=== PATIENT | female | born 1980 | race Caucasian/White ===

== ENCOUNTER 2021-11-16 08:17 | Outpatient (CLI) | payer BC, SELFPAY | END 2021-11-16 08:18 | disposition home or self-care (01) | LOC: CSHMAMMO 08:17 | PROVIDERS: ATTEND Obstetrics & Gynecology | DX: Z12.31 Encounter for screening mammogram for malignant neoplasm of breast (principal); R92.1 Mammographic calcification found on diagnostic imaging of breast | CPT/HCPCS: 77063; 77067 ==

== ENCOUNTER 2021-11-30 09:35 | Outpatient (CLI) | payer BC | END 2021-11-30 09:36 | disposition home or self-care (01) | LOC: CSHLAB 09:35 | PROVIDERS: ATTEND Surgery | DX: Z01.818 Encounter for other preprocedural examination (principal); Z20.822 Contact with and (suspected) exposure to COVID-19; C50.911 Malignant neoplasm of unspecified site of right female breast | CPT/HCPCS: 87811; 93005; 93010 ==

== ENCOUNTER 2021-12-04 06:34 | Day surgery (SDC) | payer BC ==
[2021-11-29 13:56] VITALS: BMI 37.5
[2021-12-04] MEDS ORDERED: EPINEPHrine 1 MG/ML AMP ONE (07:12)
[2021-12-04] MEDS ORDERED: Bupivacaine PF 0.5% 30 ML VIAL ONE (07:12)
[2021-12-04] MEDS ORDERED: Isosulfan Blue 50 MG/5 ML VIAL ONE (07:12)
[2021-12-04] MEDS ORDERED: CEFAZOLIN 2 GM VIAL ONE (08:01)
[2021-12-04] MEDS ORDERED: Fentanyl 100 MCG/2 ML VIAL ONE ×2 (08:46→09:28)
[2021-12-04] MEDS ORDERED: PROPOFOL 20 ML ONE (08:46)
[2021-12-04] MEDS ORDERED: PHENYLEPHRINE-NS 100 MCG/ML 10 ML SYRINGE ONE (08:48)
[2021-12-04] MEDS ORDERED: Midazolam HCl 2 mg/2 ml Vial ONE (08:55)
[2021-12-04] MEDS ORDERED: Dexamethasone 4 mg/ml Vial ONE (09:15)
[2021-12-04] MEDS ORDERED: Ondansetron PF 4 MG/2 ML Vial ONE (09:15)
[2021-12-04] MEDS ORDERED: diphenhydrAMINE 50 MG/ML VIAL ONE (09:15)
[2021-12-04] MEDS ORDERED: Ketorolac Tromethamine 30 MG/ML VIAL ONE (09:47)
[2021-12-04] MEDS ORDERED: Meperidine HCl/PF 25 MG/ML VIAL ONE (10:21)
[2021-12-04] MEDS ORDERED: Acetaminophen 325 MG TAB PO PRN (10:29)
[2021-12-04] MEDS ORDERED: HYDROcodone/Acetaminophen 5/325 mg Tablet PO PRN (10:29)
[2021-12-04] MEDS ORDERED: Glycopyrrolate 0.2 MG/ML 5 ML SYRINGE ONE (12:05)
== END 2021-12-04 11:35 | disposition home or self-care (01) ==
LOC: CSHSDC 06:34
PROVIDERS: ATTEND Surgery
PROC: 0HBT0ZZ Excision of Right Breast, Open Approach (ICD-10-PCS; principal; 2021-12-04)
PROC: 07B50ZZ Excision of Right Axillary Lymphatic, Open Approach (ICD-10-PCS; principal; 2021-12-04)
DX: C50.811 Malignant neoplasm of overlapping sites of right female breast (principal); Z17.0 Estrogen receptor positive status [ER+]; N60.31 Fibrosclerosis of right breast; N60.21 Fibroadenosis of right breast; N64.1 Fat necrosis of breast; I10 Essential (primary) hypertension; E03.9 Hypothyroidism, unspecified; Z20.822 Contact with and (suspected) exposure to COVID-19; Z79.2 Long term (current) use of antibiotics; Z79.899 Other long term (current) drug therapy; Z88.2 Allergy status to sulfonamides; Z98.890 Other specified postprocedural states
CPT/HCPCS: 19281; 76098; 78195; 88307; A9541; C1713; J0171; J0690; J1100; J1200; J1885; J2175; J2250; J2405; J2704; J3010; Q9968; S0020

== ENCOUNTER 2025-02-11 08:35 | Outpatient (CLI) | payer BC | END 2025-02-11 08:36 | disposition home or self-care (01) | LOC: CSHMAMMO 08:35 | PROVIDERS: ATTEND Surgery | DX: Z08 Encounter for follow-up examination after completed treatment for malignant neoplasm (principal); Z85.3 Personal history of malignant neoplasm of breast | CPT/HCPCS: 77066; C8908; G0279 ==